=== PATIENT | male | born 1985 | race Two or more races ===

== ENCOUNTER 2019-09-05 21:48 | Emergency (ER) | payer MEDICAID ==
[~2019-09-05] VITALS: Ht 193 cm; Wt 91.0 kg
[2019-09-05] MEDS ORDERED: HYDROCODONE/ACETAMINOPHEN 5/325MG TABLET PO ONE (23:00)
[2019-09-05] MEDS ORDERED: KETOROLAC 30MG/ML VIAL IM NR (23:30)
[2019-09-06] MEDS ORDERED: HYDROCODONE/ACETAMINOPHEN 5/325MG TABLET PO ONE (00:45)
[2019-09-06 01:53] VITALS: BP 124/78
== END 2019-09-06 01:55 | disposition home or self-care (01) ==
LOC: ER 21:48
DX: S42.002A Fracture of unspecified part of left clavicle, initial encounter for closed fracture (principal); W01.0XXA Fall on same level from slipping, tripping and stumbling without subsequent striking against object, initial encounter; Y93.89 Activity, other specified; Y92.89 Other specified places as the place of occurrence of the external cause; Y99.8 Other external cause status
CPT/HCPCS: 73030; 96372; 99283; J1885; L3670

== ENCOUNTER 2020-04-19 23:21 | Emergency (ER) | payer MEDICAID ==
[~2020-04-19] VITALS: Ht 193 cm; Wt 95.0 kg
[2020-04-19 23:50] VITALS: BP 126/83
[2020-04-20] MEDS ORDERED: BACITRACIN ZINC OINT UDPKT TOP ONE
[2020-04-20] MEDS ORDERED: LIDOCAINE HCL/EPINEPHRINE 1%-EPI 1:100,000 20 ML VIAL INFIL ONE
== END 2020-04-20 00:49 | disposition home or self-care (01) ==
LOC: ER 23:21
DX: S61.212A Laceration without foreign body of right middle finger without damage to nail, initial encounter (principal); W25.XXXA Contact with sharp glass, initial encounter; Y93.89 Activity, other specified; Y92.018 Other place in single-family (private) house as the place of occurrence of the external cause
CPT/HCPCS: 12001; 99283; A4217; J3490; Z7610

== ENCOUNTER 2022-10-15 11:35 | Emergency (ER) | payer MEDICAID, OTHER ==
[~2022-10-15] VITALS: Ht 182.9 cm; Wt 78.0 kg
[2022-10-15 11:41] VITALS: O2SAT 97
[2022-10-15] MEDS ORDERED: LORAZEPAM 1MG TABLET PO ONE (11:45)
[2022-10-15] MEDS ORDERED: KETOROLAC 60MG/2ML VIAL IM ONE (11:45)
[2022-10-15] MEDS ORDERED: TOPUD PO (13:50)
[2022-10-15 15:57] VITALS: BP 127/84; PULSE 90; RESP 16; TEMP 98.2
== END 2022-10-15 16:00 | disposition home or self-care (01) ==
LOC: ER 11:35
DX: M54.9 Dorsalgia, unspecified (principal)
CPT/HCPCS: 72070; 96372; 99283; J1885; Z7610